=== PATIENT | female | born 1980 | race Caucasian/White ===

== ENCOUNTER 2016-07-02 14:27 | Emergency (ER) | payer MEDICAID ==
[2016-07-02 14:39] VITALS: O2SAT 99
[2016-07-02] MEDS ORDERED: ONDANSETRON 4 MG/2 ML VIAL IVP ONE (14:43)
[2016-07-02 14:50] LABS: % IMMATURE GRANULYOCYTES 0.6 % (0.0-1.1); ABSOLUTE IMMATURE GRANULOCYTES 0.05 10^3/uL (0.00-0.10); ADD DIFF? NO; ADD MORPH? NO; ADD SCAN? NO; ATYPICAL LYMPHOCYTE FLAG 0 (0-99); FRAGMENT RBC FLAG 0 (0-99); HEMATOCRIT 41.6 % (38.0-47.0); HEMOGLOBIN 14.8 g/dL (12.6-16.3); LEFT SHIFT FLG 0 (0-99); LIPEMIA HEMOLYSIS FLAG 90 (0-99); MEAN CELL HEMOGLOBIN 34.2 pg (27.9-34.1); MEAN CELL HEMOGLOBIN CONCENTR. 35.6 g/dL (32.4-36.7); MEAN CELL VOLUME 96.1 fL (81.5-99.8); MEAN PLATELET VOLUME 9.6 fL (8.7-11.7); PLATELET CLUMPS FLAG 40 (0-99); PLATELET COUNT 204 10^3/uL (150-400); RED BLOOD CELL COUNT 4.33 10^6/uL (4.18-5.33); RED CELL DISTRIBUTION WIDTH 12.4 % (11.5-15.2)
--- NOTE | 2016-07-02 14:50 | EDPHY ---
H & P Stated Complaint: n/v/d since last night Time Seen by Provider: 07/02/16 14:47 HPI/ROS: CHIEF COMPLAINT: Nausea, vomiting, diarrhea, fever, flu-like illness HISTORY OF PRESENT ILLNESS: The patient presents to the ED with nausea, vomiting, diarrhea, fever and a flu-like illness for the past 24 hours. The patient has had multiple episodes of nonbloody emesis. She reports a few episodes of nonbloody diarrhea. The patient denies recent travel outside the [place]. The patient complains of a mild frontal headache. The patient denies cough. She denies dysuria, she does report subjective dehydration. The patient denies additional complaints. REVIEW OF SYSTEMS: A comprehensive 10 point review of systems is otherwise negative aside from elements mentioned in the history of present illness. Source: Patient Exam Limitations: No limitations - Personal History LMP (Females 10-55): 8-14 Days Ago Current Tetanus/Diphtheria Vaccine: Yes Current Tetanus Diphtheria and Acellular Pertussis (TDAP): Yes Tetanus Vaccine Date: 2006 - Medical/Surgical History Hx Asthma: No Hx Chronic Respiratory Disease: No Hx Diabetes: No Hx Cardiac Disease: No Hx Renal Disease: No Hx Cirrhosis: No Hx Alcoholism: No Hx HIV/AIDS: No Hx Splenectomy or Spleen Trauma: No Other PMH: skin sx for skin ca; - Social History Smoking Status: Former smoker - Physical Exam Exam: General Appearance: Alert, no distress Eyes: Pupils equal and round no pallor or injection ENT, Mouth: Mucous membranes moist Respiratory: There are no retractions, lungs are clear to auscultation Cardiovascular: Tachycardic Gastrointestinal: Abdomen is soft and nontender, no masses, bowel sounds normal Neurological: A&O, normal motor function, normal sensory exam, normal cranial nerves Skin: Warm and dry, no rashes Musculoskeletal: Neck is supple nontender Extremities: symmetrical, full range of motion Constitutional: Initial Vital Signs Temperature (C) 37.1 C 07/02/16 14:37 Heart Rate 102 H 07/02/16 14:37 Respiratory Rate 16 07/02/16 14:37 Blood Pressure 117/74 07/02/16 14:37 O2 Sat (%) 99 07/02/16 14:37 O2 Delivery Mode Room Air Allergies/Adverse Reactions: Penicillins Allergy (Verified 12/15/14 18:00) Sulfa (Sulfonamide Antibiotics) Allergy (Verified 12/15/14 18:00) Home Medications: Medication Instructions Recorded Metronidazole 500 mg PO BID #14 tab 12/15/14 Hydrocodone/APAP 5/325 [[place] 1 - 2 each PO Q6 PRN #20 tab 07/02/16 5/325] Ondansetron Odt [Zofran Odt] 4 mg PO Q4PRN PRN #20 tab 07/02/16 Medical Decision Making ED Course/Re-evaluation: The patient had an IV established. She received 2 L normal saline. She received IV Zofran and 4 mg of morphine. She presents to the ED with complaints of nausea, vomiting and diarrhea consistent with a viral gastroenteritis. The patient's laboratory studies are unremarkable. The patient does have mild pyuria but no symptoms of dysuria. A urine culture will be obtained in antibiotics withheld pending the results of the urine culture. The patient will contact the ED in 2-3 days to check the results of that test. The patient did undergo 3 serial examinations in the ED by myself over a 2 hour period. At 5:00 p.m. she is feeling much better and tolerating p.o. fluids. I feel the most likely explanation of her symptoms is a viral gastroenteritis. She has no evidence of an acute abdomen. At this point time I do feel the patient can be discharged home with customary return precautions. She does understand that we have not pursued abdominal imaging based upon her current exam. Should her symptoms worsen it is imperative she return to the ED so that reassessment can be made for the development of a more significant surgical condition. Differential Diagnosis: Differential diagnosis considered includes gastroenteritis, pancreatitis, cholecystitis, viral enteritis, pyelonephritis - Data Points Laboratory Results: Laboratory Results 07/02/16 14:25 07/02/16 14:25 07/02/16 07/02/16 14:30 14:25 WBC 8.27 10^3/uL (3.80-9.50) RBC 4.33 10^6/uL (4.18-5.33) Hgb 14.8 g/dL (12.6-16.3) Hct 41.6 % (38.0-47.0) MCV 96.1 fL (81.5-99.8) MCH 34.2 H pg (27.9-34.1) MCHC 35.6 g/dL (32.4-36.7) RDW 12.4 % (11.5-15.2) Plt Count 204 10^3/uL (150-400) MPV 9.6 fL (8.7-11.7) Neut % (Auto) 88.5 H % (39.3-74.2) Lymph % (Auto) 6.0 L % (15.0-45.0) Gates % (Auto) 4.5 % (4.5-13.0) Eos % (Auto) 0.2 L % (0.6-7.6) Baso % (Auto) 0.2 L % (0.3-1.7) Nucleat RBC Rel Count 0.0 % (0.0-0.2) Absolute Neuts (auto) 7.31 H 10^3/uL (1.70-6.50) Absolute Lymphs (auto) 0.50 L 10^3/uL (1.00-3.00) Absolute Monos (auto) 0.37 10^3/uL (0.30-0.80) Absolute Eos (auto) 0.02 L 10^3/uL (0.03-0.40) Absolute Basos (auto) 0.02 10^3/uL (0.02-0.10) Absolute Nucleated RBC 0.00 10^3/uL (0-0.01) Immature Gran % 0.6 % (0.0-1.1) Immature Gran # 0.05 10^3/uL (0.00-0.10) Sodium 135 mEq/L (134-144) Potassium 4.0 mEq/L (3.5-5.2) Chloride 104 mEq/L (97-110) Carbon Dioxide 19 L mEq/l (22-31) Anion Gap 12 mEq/L (8-16) BUN 13 mg/dL (7-23) Creatinine 0.6 mg/dL (0.6-1.0) Estimated GFR > 60 Glucose 84 mg/dL (70-100) Calcium 9.0 mg/dL (8.5-10.4) Total Bilirubin 1.2 mg/dL (0.1-1.4) Conjugated Bilirubin 0.2 mg/dL (0.0-0.5) Unconjugated Bilirubin 1.0 mg/dL (0.0-1.1) AST 28 IU/L (14-46) ALT 37 IU/L (9-52) Alkaline Phosphatase 107 IU/L (38-126) Total Protein 7.6 g/dL (6.3-8.2) Albumin 4.5 g/dL (3.5-5.0) Lipase 131.0 IU/L (23-300) Beta HCG, Qual NEGATIVE Urine Color YELLOW Urine Appearance HAZY Urine pH 5.0 (5.0-7.5) Ur Specific [place] 1.021 (1.002-1.030) Urine Protein NEGATIVE (NEGATIVE) Urine Ketones 1+ H (NEGATIVE) Urine Blood NEGATIVE (NEGATIVE) Urine Nitrate NEGATIVE (NEGATIVE) Urine Bilirubin NEGATIVE (NEGATIVE) Urine Urobilinogen NEGATIVE EU (0.2-1.0) Ur Leukocyte Esterase TRACE H (NEGATIVE) Urine RBC 5-10 H /hpf (0-3) Urine WBC 3-5 H /hpf (0-3) Ur Epithelial Cells 1+ /lpf (NONE-1+) Urine Bacteria TRACE H /hpf (NONE SEEN) Urine Mucus 1+ /lpf (NONE-1+) Ur Culture Indicated? INDICATED H (NI) Urine Glucose NEGATIVE (NEGATIVE) Medications Given: Discontinued Medications Sodium Chloride (Ns) 1,000 mls @ 0 mls/hr IV ONCE ONE PRN Reason: Wide Open Stop: 07/02/16 15:13 Last Admin: 07/02/16 15:13 Dose: 1,000 mls Ketorolac Tromethamine (Toradol) 30 mg IVP EDNOW ONE Stop: 07/02/16 15:37 Last Admin: 07/02/16 15:42 Dose: 30 mg Morphine Sulfate (Morphine) 4 mg IVP EDNOW ONE Stop: 07/02/16 15:04 Last Admin: 07/02/16 15:06 Dose: 4 mg Ondansetron HCl (Zofran) 4 mg IVP EDNOW ONE Stop: 07/02/16 14:44 Last Admin: 07/02/16 14:48 Dose: 4 mg Departure - Departure Disposition: Home, Routine, Self-Care Clinical Impression: Nausea and vomiting, Acute abdominal pain Condition: Good Instructions: Acute Abdominal Pain (ED) Additional Instructions: 1. Sometimes we are unable to diagnose an obvious cause of abdominal pain in the Emergency Department. Based upon our evaluation today, I believe the most likely explanation is a viral intestinal infection.. Because more serious conditions can be difficult to diagnose early in the course of their presentation, we ask that you return to the Emergency Department in 8-12 hours for a recheck if you are still having pain. This is necessary to exclude the development of a more serious condition such as appendicitis or other intra- abdominal emergency. In the event your pain markedly increases before that time or you develop intractable vomiting or fever return to the Emergency Department immediately. 2. You did have evidence of a few white blood cells noted in your urine testing today. We will wait to obtain a urine culture to see if antibiotics are warranted. Please contact the ED in 2 days at [phone] to check the results of your urine culture. 3. Take Ibuprofen or Motrin 600 mg by mouth three times a day. 4. Zofran as needed for nausea Prescriptions: Hydrocodone/APAP 5/325 [[place] 5/325] 1 - 2 each PO Q6 PRN #20 tab PRN Reason: for pain Ondansetron Odt [Zofran Odt] 4 mg PO Q4PRN PRN #20 tab PRN Reason: For Nausea
[2016-07-02 14:56] LABS: COLOR YELLOW; LEUKOCYTE ESTERASE,URINE TRACE (NEGATIVE); NITRITE,URINE NEGATIVE (NEGATIVE)
[2016-07-02 14:59] LABS: BACTERIA TRACE /hpf (NONE SEEN); MUCUS 1+ /lpf (NONE-1+)
[2016-07-02] MEDS ORDERED: NS 1,000 ML IV ONE (15:12)
[2016-07-02 15:13] LABS: ALANINE AMINOTRANSFERASE 37 IU/L (9-52); ALBUMIN 4.5 g/dL (3.5-5.0); ANION GAP 12 mEq/L (8-16); ASPARTATE AMINOTRANSFERASE 28 IU/L (14-46); BILIRUBIN,TOTAL 1.2 mg/dL (0.1-1.4); BILIRUBIN-CONJUGATED 0.2 mg/dL (0.0-0.5); CARBON DIOXIDE 19 mEq/l (22-31); CHLORIDE 104 mEq/L (97-110); CREATININE 0.6 mg/dL (0.6-1.0); GLOMERULAR FILTRATION RATE > 60; GLUCOSE 84 mg/dL (70-100); SODIUM 135 mEq/L (134-144); TOTAL PROTEIN 7.6 g/dL (6.3-8.2)
[2016-07-02] MEDS ORDERED: KETOROLAC 30 MG/1 ML SDV IVP ONE (15:36)
[2016-07-02] MEDS ORDERED: ONDANSETRON DISINTEGRATING 4 MG TAB PO ONE (17:24)
[2016-07-02 17:33] VITALS: BP 96/60; PULSE 88; RESP 18; TEMP 98.6
[2016-07-02 22:47] LABS: ALKALINE PHOSPHATASE 50 IU/L (38-126)
== END 2016-07-02 17:32 | disposition home or self-care (01) ==
LOC: EDBD → EDUNIT#
DX: R11.2 Nausea with vomiting, unspecified (principal); R10.0 Acute abdomen; Z85.828 Personal history of other malignant neoplasm of skin; Z87.891 Personal history of nicotine dependence
CPT/HCPCS: 96374; J1885; J2405

== ENCOUNTER 2017-01-15 19:36 | Emergency (ER) | payer MEDICAID ==
[2017-01-15 19:48] VITALS: TEMP 98.2
[2017-01-15 20:15] LABS: COLOR AMBER; LEUKOCYTE ESTERASE,URINE TRACE (NEGATIVE); NITRITE,URINE NEGATIVE (NEGATIVE)
[2017-01-15] MEDS ORDERED: NS 1,000 ML IV ONE (20:17)
[2017-01-15 20:19] LABS: BACTERIA NONE SEEN /hpf (NONE SEEN); MUCUS TRACE /lpf (NONE-1+); RBC,URINE 50-182 /hpf (0-3)
[2017-01-15 20:37] LABS: % IMMATURE GRANULYOCYTES 0.3 % (0.0-1.1); ABSOLUTE IMMATURE GRANULOCYTES 0.03 10^3/uL (0.00-0.10); ADD DIFF? NO; ADD MORPH? NO; ADD SCAN? NO; ATYPICAL LYMPHOCYTE FLAG 0 (0-99); FRAGMENT RBC FLAG 0 (0-99); HEMATOCRIT 37.4 % (38.0-47.0); HEMOGLOBIN 12.9 g/dL (12.6-16.3); LEFT SHIFT FLG 0 (0-99); LIPEMIA HEMOLYSIS FLAG 90 (0-99); MEAN CELL HEMOGLOBIN 33.2 pg (27.9-34.1); MEAN CELL HEMOGLOBIN CONCENTR. 34.5 g/dL (32.4-36.7); MEAN CELL VOLUME 96.1 fL (81.5-99.8); MEAN PLATELET VOLUME 9.8 fL (8.7-11.7); PLATELET CLUMPS FLAG 0 (0-99); PLATELET COUNT 193 10^3/uL (150-400); RED BLOOD CELL COUNT 3.89 10^6/uL (4.18-5.33); RED CELL DISTRIBUTION WIDTH 12.8 % (11.5-15.2)
[2017-01-15 20:50] LABS: ALANINE AMINOTRANSFERASE 30 IU/L (9-52); ALBUMIN 4.2 g/dL (3.5-5.0); ALKALINE PHOSPHATASE 38 IU/L (38-126); ANION GAP 12 mEq/L (8-16); ASPARTATE AMINOTRANSFERASE 25 IU/L (14-46); BILIRUBIN,TOTAL 0.6 mg/dL (0.1-1.4); BILIRUBIN-CONJUGATED 0.3 mg/dL (0.0-0.5); BILIRUBIN-UNCONJUGATED 0.3 mg/dL (0.0-1.1); CALCIUM 9.6 mg/dL (8.5-10.4); CARBON DIOXIDE 21 mEq/l (22-31); CHLORIDE 105 mEq/L (97-110); CREATININE 0.8 mg/dL (0.6-1.0); GLOMERULAR FILTRATION RATE > 60; GLUCOSE 108 mg/dL (70-100); POTASSIUM 3.7 mEq/L (3.5-5.2); SODIUM 138 mEq/L (134-144); TOTAL PROTEIN 6.7 g/dL (6.3-8.2)
[2017-01-15] MEDS ORDERED: DICYCLOMINE 10 MG CAP PO ONE ×2 (21:25→21:40)
--- NOTE | 2017-01-15 21:36 | EDPHY ---
H & P Stated Complaint: gen abd pain x 3 hours, nausea, diarrhea HPI/ROS: Chief complaint: Abdominal pain History of present illness: This is a 37-year-old female who presents to the emergency department for evaluation of abdominal pain. Patient reports the onset of symptoms over the last 3 hours. She has had associated nausea, vomiting and diarrhea. Vomiting and diarrhea described as nonbloody. Patient reports a long history of chronic abdominal pain, currently it is thought that she has abdominal migraines. She did take her sumatriptan and diclofenac that she treats her abdominal pain with at the onset of symptoms and they have been slowly improving. She denies other associated signs or symptoms including no fevers, no urinary symptoms. This is similar in presentation to symptoms she has had over the last few years. Review of systems: A 10 point review of systems was obtained and other than described above was negative - Personal History LMP (Females 10-55): 1-7 Days Ago Current Tetanus/Diphtheria Vaccine: Unsure Current Tetanus Diphtheria and Acellular Pertussis (TDAP): Unsure Tetanus Vaccine Date: 2006 - Medical/Surgical History Hx Asthma: No Hx Chronic Respiratory Disease: No Hx Diabetes: No Hx Cardiac Disease: No Hx Renal Disease: No Hx Cirrhosis: No Hx Alcoholism: No Hx HIV/AIDS: No Hx Splenectomy or Spleen Trauma: No Other PMH: denies. (does not have migraines) - Social History Smoking Status: Former smoker - Physical Exam Exam: General Appearance: Alert, nontoxic. Eyes: Pupils equal and round no pallor or injection. ENT, Mouth: Mucous membranes moist. Respiratory: There are no retractions, lungs are clear to auscultation. Cardiovascular: Regular rate and rhythm. Gastrointestinal: Bowel sounds normal. Abdomen soft, nondistended, nontender to palpation. Neurological: Alert and oriented x4. Strength and sensation intact and symmetrical. Skin: Warm and dry, no rashes. Musculoskeletal: Neck is supple non tender. Extremities are symmetrical, full range of motion. Psychiatric: Patient is oriented X 3, there is no agitation. Constitutional: Initial Vital Signs Temperature (C) 36.8 C 01/15/17 19:45 Heart Rate 82 01/15/17 19:45 Respiratory Rate 16 01/15/17 19:45 Blood Pressure 120/83 H 01/15/17 19:45 O2 Sat (%) 99 01/15/17 19:45 O2 Delivery Mode Room Air Allergies/Adverse Reactions: Penicillins Allergy (Verified 12/15/14 18:00) Sulfa (Sulfonamide Antibiotics) Allergy (Verified 12/15/14 18:00) Home Medications: Medication Instructions Recorded Diclofenac Potassium 01/15/17 Sumatriptan Succinate 01/15/17 Medical Decision Making ED Course/Re-evaluation: Patient seen under the supervision of my secondary supervising physician Dr. Velasquez Hilliard. Patient presents to the emergency department with abdominal pain. She has a long history of chronic abdominal pain. This is similar in nature. She is nontoxic. Afebrile and vital signs are stable. Serial abdominal exams are performed in the emergency room and remain benign. Baseline blood studies largely unremarkable. Urinalysis obtained, concerning findings are noted but she does states she has started her menstrual cycle and she has no urinary symptoms, we will not treat at this time but will await a urine culture. I have discussed pursuing imaging studies including an ultrasound which her outpatient doctor wants to get or a CT scan, she declines at this time given this is a typical presentation and she is feeling much better. She will follow up with her primary care doctor for further evaluation and care. Home care is discussed. Strict return precautions are given. The patient voiced understanding and agreement with plan. Differential Diagnosis: Included but not limited to abdominal migraine, gastritis, gastroenteritis, biliary tract disease, pancreatitis, colitis, urinary tract disease, an associated complications - Data Points Laboratory Results: Laboratory Results 01/15/17 20:30 01/15/17 20:30 Medications Given: Discontinued Medications Dicyclomine HCl (Bentyl) 20 mg PO EDNOW ONE Stop: 01/15/17 21:26 Last Admin: 01/15/17 21:57 Dose: 20 mg Dicyclomine HCl (Bentyl) 20 mg PO EDNOW ONE Stop: 01/15/17 21:41 Last Admin: 01/15/17 22:00 Dose: 20 mg Sodium Chloride (Ns) 1,000 mls @ 0 mls/hr IV EDNOW ONE; Wide Open PRN Reason: Protocol Stop: 01/15/17 20:18 Last Admin: 01/15/17 20:29 Dose: 1,000 mls Departure - Departure Disposition: Home, Routine, Self-Care Clinical Impression: Abdominal pain Qualifiers: Abdominal location: generalized Qualified Code(s): R10.84 - Generalized abdominal pain Condition: Good Instructions: Dicyclomine (By mouth), Acute Abdominal Pain (ED) Additional Instructions: Follow-up with a primary care doctor for continued evaluation and care If symptoms worsen or new symptoms develop return to the emergency room for recheck Referrals: NONE *PRIMARY CARE P,. [Primary Care Provider] - As per Instructions Quincy Larsen MD [Medical Doctor] - As per Instructions
[2017-01-15 22:16] VITALS: BP 107/68; PULSE 77; RESP 18; O2SAT 95
== END 2017-01-15 22:16 | disposition home or self-care (01) ==
DX: R10.84 Generalized abdominal pain (principal); E86.9 Volume depletion, unspecified; Z87.891 Personal history of nicotine dependence

== ENCOUNTER 2017-01-17 02:24 | Emergency (ER) | payer MEDICAID ==
[2017-01-17 02:36] VITALS: TEMP 97.9
[2017-01-17] MEDS ORDERED: NS 1,000 ML IV ONE (02:59)
[2017-01-17] MEDS ORDERED: KETOROLAC 30 MG/1 ML SDV IVP ONE (02:59)
[2017-01-17 03:07] LABS: % IMMATURE GRANULYOCYTES 0.3 % (0.0-1.1); ABSOLUTE IMMATURE GRANULOCYTES 0.02 10^3/uL (0.00-0.10); ADD DIFF? NO; ADD MORPH? NO; ADD SCAN? NO; ATYPICAL LYMPHOCYTE FLAG 10 (0-99); FRAGMENT RBC FLAG 0 (0-99); HEMATOCRIT 39.1 % (38.0-47.0); HEMOGLOBIN 13.4 g/dL (12.6-16.3); LEFT SHIFT FLG 0 (0-99); LIPEMIA HEMOLYSIS FLAG 90 (0-99); MEAN CELL HEMOGLOBIN 33.3 pg (27.9-34.1); MEAN CELL HEMOGLOBIN CONCENTR. 34.3 g/dL (32.4-36.7); MEAN CELL VOLUME 97.3 fL (81.5-99.8); MEAN PLATELET VOLUME 10.5 fL (8.7-11.7); PLATELET CLUMPS FLAG 10 (0-99); PLATELET COUNT 209 10^3/uL (150-400); RED BLOOD CELL COUNT 4.02 10^6/uL (4.18-5.33); RED CELL DISTRIBUTION WIDTH 12.9 % (11.5-15.2)
[2017-01-17 03:13] LABS: ANION GAP 14 mEq/L (8-16); CALCIUM 9.3 mg/dL (8.5-10.4); CARBON DIOXIDE 21 mEq/l (22-31); CHLORIDE 108 mEq/L (97-110); CREATININE 0.7 mg/dL (0.6-1.0); GLOMERULAR FILTRATION RATE > 60; GLUCOSE 83 mg/dL (70-100); POTASSIUM 3.9 mEq/L (3.5-5.2); SODIUM 143 mEq/L (134-144)
[2017-01-17 03:55] LABS: COLOR YELLOW; LEUKOCYTE ESTERASE,URINE 1+ (NEGATIVE); NITRITE,URINE NEGATIVE (NEGATIVE)
[2017-01-17 04:00] LABS: MUCUS TRACE /lpf (NONE-1+); RBC,URINE 50-182 /hpf (0-3); WBC,URINE 25-50 /hpf (0-3)
--- NOTE | 2017-01-17 04:42 | EDPHY ---
H & P Stated Complaint: severe menstrual cramping/diarrhea Time Seen by Provider: 01/17/17 02:26 HPI/ROS: HPI The patient presents brought in by ambulance for severe menstrual cramps which have been present for last few days though became worse tonight. The cramping is diffuse, in her lower abdomen, constant, severe. She has had these symptoms before though feels like there worse lately. She is currently having her menses and reports changing her tampon approximately every 4 hours. They are associated with diarrhea. She has been followed by Dr. Schwartz of OBGYN and ultrasound has been ordered for her. She also was prescribed oral contraceptive progesterone many pills, however was skeptical about taking these. EMS gave her 100 mcg of fentanyl with improvement in her symptoms. REVIEW OF SYSTEMS Constitutional: No fever, no chills. Eyes: No discharge. ENT: No sore throat. Cardiovascular: No chest pain, no palpitations. Respiratory: No cough, no shortness of breath. Gastrointestinal: See HPI, no vomiting. Genitourinary: No hematuria. Musculoskeletal: No back pain. Skin: No rashes. Neurological: No headache. PMHx: Dysmenorrhea Soc Hx: Housed PHYSICAL General Appearance: Alert, no distress Eyes: Pupils equal and round no pallor or injection ENT, Mouth: Mucous membranes moist Respiratory: There are no retractions, lungs are clear to auscultation Cardiovascular: Regular rate and rhythm Gastrointestinal: Abdomen is soft with mild tenderness in the lower abdomen at the midline without any rebound or guarding Neurological: A&O, moves all extremities Skin: Warm and dry, no rashes Musculoskeletal: Neck is supple non tender Extremities: symmetrical, full range of motion Psychiatric: Patient is oriented X 3, there is no agitation Source: Patient Exam Limitations: No limitations - Personal History Tetanus Vaccine Date: 2006 - Medical/Surgical History Hx Asthma: No Hx Chronic Respiratory Disease: No Hx Diabetes: No Hx Cardiac Disease: No Hx Renal Disease: No Hx Cirrhosis: No Hx Alcoholism: No Hx HIV/AIDS: No Hx Splenectomy or Spleen Trauma: No Other PMH: denies. (does not have migraines) - Social History Smoking Status: Former smoker Constitutional: Initial Vital Signs Temperature (C) 36.6 C 01/17/17 02:34 Heart Rate 82 01/17/17 02:34 Respiratory Rate 22 H 01/17/17 02:34 Blood Pressure 135/85 H 01/17/17 02:34 O2 Sat (%) 97 01/17/17 02:34 O2 Delivery Mode Room Air Allergies/Adverse Reactions: Penicillins Allergy (Verified 01/17/17 02:35) Sulfa (Sulfonamide Antibiotics) Allergy (Verified 01/17/17 02:35) Home Medications: Medication Instructions Recorded Diclofenac Potassium 01/15/17 Sumatriptan Succinate 01/15/17 Medical Decision Making Differential Diagnosis: This is a 37-year-old female who presents with lower abdominal cramping in the setting of her menses. Differential diagnosis includes dysmenorrhea, ovarian cysts, less likely ovarian torsion, less likely PID. In the emergency room, patient was given pain medication with complete resolution of her symptoms. I encouraged her to start taking the progesterone many pills she has been prescribed. I have asked that she follow up with her OBGYN for ultrasound. - Data Points Laboratory Results: Laboratory Results 01/17/17 02:15 01/17/17 02:15 Medications Given: Discontinued Medications Sodium Chloride (Ns) 1,000 mls @ 0 mls/hr IV EDNOW ONE; Wide Open PRN Reason: Protocol Stop: 01/17/17 03:00 Last Admin: 01/17/17 03:11 Dose: 1,000 mls Ketorolac Tromethamine (Toradol) 15 mg IVP EDNOW ONE Stop: 01/17/17 03:00 Last Admin: 01/17/17 03:14 Dose: 15 mg Departure - Departure Disposition: Home, Routine, Self-Care Clinical Impression: Dysmenorrhea Condition: Good Instructions: Dysmenorrhea (ED) Additional Instructions: I recommend that you follow all your OBGYN is a advice to start the mini pill. Please also obtain your ultrasound in the next few days. Return to the emergency room if your worse in any way. I would like for you to follow up with your OBGYN in the next 2 days. Referrals: Ronda Schwartz CNM [Certified Nurse Meter Mechanic] - As per Instructions
[2017-01-17 04:56] VITALS: BP 96/53; PULSE 91; RESP 16; O2SAT 98
== END 2017-01-17 05:04 | disposition home or self-care (01) ==
LOC: EDUNIT#
DX: N94.6 Dysmenorrhea, unspecified (principal); E86.9 Volume depletion, unspecified; Z87.891 Personal history of nicotine dependence
CPT/HCPCS: 96374; J1885

== ENCOUNTER → 2017-01-31 | Outpatient (CLI) | payer MEDICAID | LOC: FIMAGING 14:38 | PROVIDERS: ATTEND Midwife | DX: N94.6 Dysmenorrhea, unspecified (principal); N92.0 Excessive and frequent menstruation with regular cycle; D25.2 Subserosal leiomyoma of uterus ==

== ENCOUNTER 2017-07-10 00:05 | Emergency (ER) | payer MEDICAID ==
[2017-07-10] MEDS ORDERED: LIDOCAINE 1% 75 MG in NS 100 ML IV ONE (01:12)
--- NOTE | 2017-07-10 01:39 | EDPHY ---
H & P Stated Complaint: abdominal pain Time Seen by Provider: 07/10/17 00:18 HPI/ROS: HPI The patient presents with abdominal pain which began several hours ago, which started suddenly and is diffuse and cramping in nature. It has been severe. She is brought in by ambulance. She was given IV fluids and Zofran with some improvement in her symptoms. Today was the 1st day of her menses and she has had similar pain in the setting. She was recently on the mini pill, however stop taking it about a month ago because it was causing some affects on her mood. Prior to arrival in the emergency department, she took Imitrex, Toradol, THC without much improvement in her symptoms. I have seen her in the emergency department for this once before several months ago. She is followed by Sanjana Carlson. She had an ultrasound performed in January of 2017 which demonstrated endometrial stripe of 9 mm, 2 cm left-sided subserosal fibroid. REVIEW OF SYSTEMS Constitutional: No fever, no chills. Eyes: No discharge. ENT: No sore throat. Cardiovascular: No chest pain, no palpitations. Respiratory: No cough, no shortness of breath. Gastrointestinal: See HPI Genitourinary: No hematuria. Musculoskeletal: No back pain. Skin: No rashes. Neurological: No headache. PMHx: Dysmenorrhea PHYSICAL General Appearance: Alert, uncomfortable appearing Eyes: Pupils equal and round no pallor or injection ENT, Mouth: Mucous membranes moist Respiratory: There are no retractions, lungs are clear to auscultation Cardiovascular: Regular rate and rhythm Gastrointestinal: Abdomen is soft and non-tender, no masses, bowel sounds normal Neurological: A&O, moves all extremities Skin: Warm and dry, no rashes Musculoskeletal: Neck is supple non tender Extremities: symmetrical, full range of motion Psychiatric: Patient is oriented X 3, there is no agitation Source: Patient Exam Limitations: No limitations - Personal History LMP (Females 10-55): Now Tetanus Vaccine Date: 2006 - Medical/Surgical History Hx Asthma: No Hx Chronic Respiratory Disease: No Hx Diabetes: No Hx Cardiac Disease: No Hx Renal Disease: No Hx Cirrhosis: No Hx Alcoholism: No Hx HIV/AIDS: No Hx Splenectomy or Spleen Trauma: No Other PMH: migranes - Social History Smoking Status: Former smoker Constitutional: Initial Vital Signs Temperature (C) 36.6 C 07/10/17 00:07 Heart Rate 68 07/10/17 00:07 Respiratory Rate 18 07/10/17 00:07 Blood Pressure 100/63 07/10/17 00:07 O2 Sat (%) 99 07/10/17 00:07 O2 Delivery Mode Room Air Allergies/Adverse Reactions: Penicillins Allergy (Verified 01/17/17 02:35) Sulfa (Sulfonamide Antibiotics) Allergy (Verified 01/17/17 02:35) Home Medications: Medication Instructions Recorded Diclofenac Potassium 01/15/17 Sumatriptan Succinate 01/15/17 Medical Decision Making Differential Diagnosis: 37-year-old female with severe dysmenorrhea, previously managed on progestin only pill, presents brought in by ambulance on day 1 of her menses with severe cramping abdominal pain and nausea with vomiting. Differential diagnosis includes dysmenorrhea, abdominal migraine, cyclic vomiting. Given patient's presentation is identical to previous, I will not initiate broad workup. I will focus on symptomatic relief. I will give her IV fluids, medication for pain and vomiting as needed and we will monitor her here. In the ED, the patient improved after receiving fluids, lidocaine. She did take a large amount THC prior to arrival in the emergency department and became quite intoxicated with this. She was observed for several hours and was eventually able to sleep. She felt well enough to go home and was discharged home. I have advised her to follow up with her treating OBGYN to discuss options for hormone treatment as the seem to be helping her with her dysmenorrhea previously. - Data Points Medications Given: Discontinued Medications Lidocaine HCl 75 mg/ Sodium (Chloride) 107.5 mls @ 600 mls/hr IV EDNOW ONE Stop: 07/10/17 01:22 Last Admin: 07/10/17 01:31 Dose: 107.5 mls Departure - Departure Disposition: Home, Routine, Self-Care Clinical Impression: Dysmenorrhea Condition: Good Instructions: Dysmenorrhea (ED) Additional Instructions: Please call your primary OBGYN to arrange for a follow-up appointment. Return to the emergency department if your worse in any way. Referrals: Ronda Schwartz CNM [Certified Nurse Grain Sacker] - As per Instructions
[2017-07-10 04:25] VITALS: TEMP 98.2
[2017-07-10 06:09] VITALS: BP 98/58; PULSE 86; RESP 16; O2SAT 97
== END 2017-07-10 06:08 | disposition home or self-care (01) ==
LOC: EDUNIT#
DX: N94.6 Dysmenorrhea, unspecified (principal); Z87.891 Personal history of nicotine dependence
CPT/HCPCS: 96365

== ENCOUNTER → 2018-02-19 | Outpatient (CLI) | payer MEDICAID | LOC: FIMAGING 09:34 | PROVIDERS: ATTEND Nurse Practitioner Family | DX: D25.2 Subserosal leiomyoma of uterus (principal); N85.8 Other specified noninflammatory disorders of uterus ==

== ENCOUNTER 2018-04-24 08:42 | Emergency (ER) | payer MEDICAID ==
--- NOTE | 2018-04-24 09:16 | EDPHY ---
H & P Stated Complaint: menstral cramps Time Seen by Provider: 04/24/18 09:01 HPI/ROS: CHIEF COMPLAINT: "I have got really bad menstrual cramps" HISTORY OF PRESENT ILLNESS: 38-year-old female history of endometriosis, uterine fibroids, started her menstrual cycles today, complaining of suprapubic cramping, arrives by ambulance. Patient has intramuscular Toradol which she self administer at home shortly prior to calling the ambulance. At the time I examine the patient it 9:07 a.m., she is asymptomatic. She has an appointment today at 1:00 p.m. With her OBGYN and is planning on more than likely surgery for endometriosis and uterine fibroids in May 2018. She currently denies abdominal pain. Denies: Fever, chills, back flank pain, flu-like symptoms, urinary abnormality PRIMARY CARE PROVIDER: REVIEW OF SYSTEMS: 10 systems reviewed and negative with the exception of the elements mentioned in the history of present illness PAST MEDICAL & SURGICAL HISTORY: uterine fibroids. Endometriosis. SOCIAL HISTORY: Nonsmoker PHYSICAL EXAM (Prior to examination, patient consented to physical exam, hands were washed and my usual and customary physical exam procedures followed) 1) GENERAL: Well-developed, well-nourished, alert and oriented. Appears to be in no acute distress. Appears well. Smiling 2) HEAD: Normocephalic, atraumatic 3) HEENT: Pupils equal, round, reactive to light bilaterally. Sclera anicteric. Nasopharynx, oropharynx, clear, no lesions. Moist Mucous membranes. 4) NECK: Full range of motion, no meningeal signs. 5) LUNGS: Clear auscultation bilaterally, no wheezes, no rhonchi, no retractions. 6) HEART: Regular rate and rhythm, no murmur, no heave, no gallop. 7) ABDOMEN: No guarding, no rebound, no focal tenderness, negative McBurney's, negative Perez's, negative Rovsing's, negative peritoneal sign, I am unable to elicit any abdominal pain whatsoever 8) MUSCULOSKELETAL: Moving all extremities, no focal areas of tenderness, no obvious trauma. No peripheral edema or discoloration. 9) BACK: No CVA tenderness, no midline vertebral tenderness, no fluctuance, no step-off, no obvious trauma, no visual or palpable abnormality. 10) SKIN: No rash, no petechiae. 11) Psychiatric: Patient is oriented X 3, there is no agitation. DIFFERENTIAL DIAGNOSIS: My differential diagnosis includes, but is not limited to, acute appendicitis, acute cholecystitis, bowel obstruction, acute pancreatitis, ovarian torsion, ectopic , gastritis and urinary tract infection. The patient understands that this diagnosis is provisional and can never be 100% accurate. This is a partial list of diagnoses considered. These considerations are based on history, physical exam, past history and reassessment. - Personal History LMP (Females 10-55): Now Current Tetanus/Diphtheria Vaccine: No Current Tetanus Diphtheria and Acellular Pertussis (TDAP): No Tetanus Vaccine Date: 2006 - Medical/Surgical History Hx Asthma: No Hx Chronic Respiratory Disease: No Hx Diabetes: No Hx Cardiac Disease: No Hx Renal Disease: No Hx Cirrhosis: No Hx Alcoholism: No Hx HIV/AIDS: No Hx Splenectomy or Spleen Trauma: No Other PMH: migranes, ? endometriosis, fibroids and ovarian cysts - Social History Smoking Status: Former smoker Constitutional: Initial Vital Signs Temperature (C) 36.2 C 04/24/18 08:44 Heart Rate 74 04/24/18 08:44 Respiratory Rate 18 04/24/18 08:44 Blood Pressure 112/67 04/24/18 08:44 O2 Sat (%) 100 04/24/18 08:44 O2 Delivery Mode Room Air Allergies/Adverse Reactions: Penicillins Allergy (Verified 01/17/17 02:35) Sulfa (Sulfonamide Antibiotics) Allergy (Verified 01/17/17 02:35) Home Medications: Medication Instructions Recorded Diclofenac Potassium 01/15/17 Sumatriptan Succinate 01/15/17 Medical Decision Making ED Course/Re-evaluation: 9:15 a.m.: Patient is currently asymptomatic. She has already received IV access and IV fluids. She has not been given EMS medication or medication the ER beyond IV fluids. Will check test, urinalysis and plan on more than likely discharged so she can keep her appointment today at 1:00 p.m. With OBGYN. This time I do not think that further diagnostic studies are ultrasound indicated. I reviewed the patient's old medical records. Care of patient under supervision of secondary supervising physician Dr Jodie Castaneda . - Data Points Laboratory Results: 04/24/18 04/24/18 11:15 09:00 Beta HCG, Qual NEGATIVE Urine Color YELLOW Urine Appearance MODERATELY TURBID Urine pH 5.0 (5.0-7.5) Ur Specific [place] 1.019 (1.002-1.030) Urine Protein NEGATIVE (NEGATIVE) Urine Ketones NEGATIVE (NEGATIVE) Urine Blood 3+ H (NEGATIVE) Urine Nitrate NEGATIVE (NEGATIVE) Urine Bilirubin NEGATIVE (NEGATIVE) Urine Urobilinogen NEGATIVE EU EU (0.2-1.0) Ur Leukocyte Esterase NEGATIVE (NEGATIVE) Urine RBC 50-182 /hpf H /hpf (0-3) Urine WBC 10-15 /hpf H /hpf (0-3) Ur Epithelial Cells TRACE /lpf /lpf (NONE-1+) Urine Mucus 2+ /lpf H /lpf (NONE-1+) Urine Glucose NEGATIVE (NEGATIVE) Medications Given: Discontinued Medications Sodium Chloride (Ns) 1,000 mls @ 0 mls/hr IV ONCE ONE PRN Reason: Wide Open Stop: 04/24/18 10:30 Last Admin: 04/24/18 10:32 Dose: 1,000 mls Departure - Departure Disposition: Home, Routine, Self-Care Clinical Impression: Menstrual pain Condition: Good Instructions: Dysmenorrhea (ED) Additional Instructions: Return to the ER if you develop new or worsening pain. Referrals: Keep, your appointment with your mechanical service technician today [Other] - As per Instructions
[2018-04-24] MEDS ORDERED: NS 1,000 ML IV ONE (10:29)
[2018-04-24 11:37] VITALS: BP 100/61
== END 2018-04-24 11:49 | disposition home or self-care (01) ==
LOC: EDUNIT#
DX: N94.6 Dysmenorrhea, unspecified (principal); E86.9 Volume depletion, unspecified; N80.9 Endometriosis, unspecified; D25.9 Leiomyoma of uterus, unspecified

== ENCOUNTER 2018-09-03 07:34 | Observation (INO) | payer MEDICAID ==
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
[2018-09-03] MEDS ORDERED: GABAPENTIN 300 MG CAP PO ONE (07:42)
[2018-09-03] MEDS ORDERED: ACETAMINOPHEN 500 MG TAB PO ONE (07:42)
[2018-09-03] MEDS ORDERED: PHENAZOPYRIDINE HCL 200 MG TAB PO ONE (07:42)
[2018-09-03] MEDS ORDERED: ceFAZolin 2 GM/DEXTROSE 100 ML IV ONE (07:42)
[2018-09-03] MEDS ORDERED: LR 1,000 ML IV ONE (07:44)
[2018-09-03] MEDS ORDERED: BUPIVACAINE/EPI 0.5% 30 ML SDV ONE (08:17)
[2018-09-03] MEDS ORDERED: PROPOFOL 200 MG/20 ML VIAL ONE (09:36)
[2018-09-03] MEDS ORDERED: DEXAMETHASONE 4 MG/ML VIAL ONE ×2 (09:36→14:08)
[2018-09-03] MEDS ORDERED: ROCURONIUM 100 MG/10 ML VIAL ONE (09:36)
[2018-09-03] MEDS ORDERED: LIDOCAINE 2% 100 MG/5 ML SYR ONE (09:36)
[2018-09-03] MEDS ORDERED: ONDANSETRON 4 MG/2 ML VIAL ONE ×3 (09:36→14:08)
[2018-09-03] MEDS ORDERED: fentaNYL 250 MCG/5 ML INJ ONE (09:36)
--- NOTE | 2018-09-03 09:45 | PDHPUP ---
History & Physical Update H&P update statement: This history and physical update is based on an assessment of the patient which was completed after admission or registration (within 24 hours), but prior to the surgery/procedure. H&P update: H&P reviewed & patient examined, no change in patient's condition since H&P completed
--- NOTE | 2018-09-03 10:06 | PDANEPAE ---
ANE History of Present Illness endometriosis and here for ablation with robotic assist ANE Past Medical History - Cardiovascular History Hx Hypertension: No Hx Arrhythmias: Yes Hx Chest Pain: No Hx Coronary Artery / Peripheral Vascular Disease: No Hx CHF / Valvular Disease: No Hx Palpitations: No Cardiovascular History Comment: heart murmur as baby - Pulmonary History Hx COPD: No Hx Asthma/Reactive Airway Disease: No Hx Recent Upper Respiratory Infection: No Hx Oxygen in Use at Home: No Hx Sleep Apnea: No Sleep Apnea Screening Result - Last Documented: Negative - Neurologic History Hx Cerebrovascular Accident: No Hx Seizures: No Hx Dementia: No Neurologic History Comment: migraines - Endocrine History Hx Diabetes: No - Renal History Hx Renal Disorders: No - Liver History Hx Hepatic Disorders: No - Neurological & Psychiatric Hx Hx Neurological and Psychiatric Disorders: No - Cancer History Hx Cancer: Yes Cancer History Comment: skin ca and pre- cancerous skin ca spots removed - Congenital Disorder History Hx Congenital Disorders: No - GI History Hx Gastrointestinal Disorders: No - Other Health History Other Health History: inner ear piercing patient will try to get it removed and have plastic post placed for surgery - Chronic Pain History Chronic Pain: No - Surgical History Prior Surgeries: removal of bone fragments in broken nose under twilight anesthesia- 2013 ANE Review of Systems Review of Systems: - Exercise capacity METS (RN): 4 METS ANE Patient History - Allergies Allergies/Adverse Reactions: nickel Allergy (Verified 08/13/18 10:51) Rash- very quickly upon contact Penicillins Allergy (Verified 08/13/18 10:51) Hives Sulfa (Sulfonamide Antibiotics) Allergy (Verified 08/13/18 10:51) Hives - Home Medications Home Medications: Ajovy 08/13/18 [Last Taken 09/02/18] Herbals/Supplements -Info Only 08/13/18 [Last Taken 1 Week Ago ~08/27/18] Hydroxyzine HCl PRN 08/13/18 [Last Taken 2 Weeks Ago ~08/20/18] Zipsor PRN 08/13/18 [Last Taken 2 Weeks Ago ~08/20/18] Cyclobenzaprine 09/03/18 [Last Taken 09/02/18] - NPO status NPO Since - Liquids (Date): 09/03/18 NPO Since - Liquids (Time): 06:00 NPO Since - Solids (Date): 09/02/18 NPO Since - Solids (Time): 22:00 - Smoking Hx Smoking Status: Former smoker - Family Anes Hx Family Hx Anesthesia Complications: none ANE Labs/Vital Signs - Vital Signs Blood Pressure: 95/62 Heart Rate: 78 Respiratory Rate: 18 O2 Sat (%): 99 Height: 168.91 cm Weight: 52.163 kg ANE Physical Exam - Airway Neck exam: FROM Mallampati Score: Class 1 Mouth exam: normal dental/mouth exam - Pulmonary Pulmonary: no respiratory distress, no rales or rhonchi - Cardiovascular Cardiovascular: regular rate and rhythym, no murmur, rub, or gallop - ASA Status ASA Status: II ANE Anesthesia Plan Anesthesia Plan: general endotracheal anesthesia Total IV Anesthesia: No
[2018-09-03] MEDS ORDERED: MIDAZOLAM 2 MG/2 ML VIAL IVP ONE (10:07)
[2018-09-03] MEDS ORDERED: MIDAZOLAM 2 MG/2 ML VIAL ONE (10:12)
--- NOTE | 2018-09-03 12:08 | POSTOPPROG ---
Post Op Note Date of Operation: 09/03/18 Surgeon: Juliocesar Rodriguez Mail Handlers Supervisor: Amada Roach Anesthesia: GET(General Endotracheal) Pre-op Diagnosis: endometriosis Post-op Diagnosis: Same Procedure: Robotic excision of extensive endo, bilat ureterolysis, appy Inf/Abcess present in the surg proc area at time of surgery?: No EBL: Minimal Complications: None
[2018-09-03] MEDS ORDERED: HYDROCODONE/APAP 5/325 TAB PO PRN (12:09)
[2018-09-03] MEDS ORDERED: OXYCODONE/APAP 5/325 TAB PO PRN (12:09)
[2018-09-03] MEDS ORDERED: ONDANSETRON DISINTEGRATING 4 MG TAB PO PRN (12:10)
[2018-09-03] MEDS ORDERED: oxyCODONE IR 5 MG TAB PO PRN (12:15)
[2018-09-03] MEDS ORDERED: fentaNYL 100 MCG/2 ML INJ IVP PRN (12:15)
[2018-09-03] MEDS ORDERED: NALOXONE HCL 0.4 MG/ML INJ IVP PRN (12:15)
[2018-09-03] MEDS ORDERED: MEPERIDINE 25 MG/0.5 ML AMP IVP PRN (12:15)
[2018-09-03] MEDS ORDERED: LR 500 ML IV PRN (12:15)
[2018-09-03] MEDS ORDERED: HYDROmorphONE/DILAUDID 1 MG/ML INJ ONE (12:23)
[2018-09-03] MEDS ORDERED: DIAZEPAM 5 MG/ML 1 ML SYR ONE (12:23)
[2018-09-03] MEDS: HYDROmorphONE/DILAUDID 1 MG/ML INJ IVP PRN ×4 (12:25→16:24)
[2018-09-03] MEDS ORDERED: PROMETHAZINE HCL 25 MG/ML INJ ONE (12:26)
--- NOTE | 2018-09-03 12:27 | POSTANESTH ---
Post Anesthetic Evaluation Cardiovascular Status: Normal, Stable Respiratory Status: Normal, Stable Level of Consciousness/Mental Status: Can Participate in Eval, Mildly Sleepy, Arousable Pain Control: Adequate, Prn Tx Ordered Nausea/Vomiting Control: Adequate, Prn Tx Ordered Complications Possibly Related to Anesthesia: None Noted (treating pain and nausea. mild petechia noticed around eyes and upper cheeks. kayla informed)
[2018-09-03] MEDS: PROMETHAZINE HCL 25 MG/ML INJ IVP PRN ×2 (12:31→13:20)
[2018-09-03] MEDS: DIAZEPAM 5 MG/ML 1 ML SYR IVP PRN ×2 (12:40→13:25)
--- NOTE | 2018-09-03 13:20 | GOP ---
[f rep st] OPERATIVE REPORT DATE OF OPERATION: 09/03/2018 SURGEON: Juliocesar Rodriguez MD HEAVY EQUIPMENT RENTAL MANAGER: Amada Roach CFA. ANESTHESIA: General. PREOPERATIVE DIAGNOSIS: 1. Endometriosis. 2. Dysmenorrhea. 3. Midcycle pain. 4. Dyschezia. POSTOPERATIVE DIAGNOSIS: 1. Endometriosis. 2. Dysmenorrhea. 3. Midcycle pain. 4. Dyschezia. 5. Uterine fibroids. PROCEDURE PERFORMED: 1. Robotic excision of endometriosis in anterior and posterior cul-de-sac, bilateral ovarian fossa. 2. Laparoscopic myomectomy. 3. Excision of sigmoid lesions. 4. Excision of rectal nodule. 5. Bilateral ureterolysis. 6. Bilateral ovariopexy. 7. Appendectomy by Dr. Zamora. FINDINGS: SPECIMENS: 1. Pelvic peritoneum with endometriosis. 2. Sigmoid lesions. 3. Rectal lesion. 1. Uterine fibroids. 4. ESTIMATED BLOOD LOSS: Scant. DESCRIPTION OF PROCEDURE: The patient was taken to the operating room where she was identified. Gen eral anesthesia was administered and found to be adequate. She was placed in the lithotomy position and prepared and draped in normal sterile fashion. A Fisher catheter was placed in her bladder. A Hu lka tenaculum was placed in the uterus for manipulation. A bimanual exam had been performed noting a nodular area in the posterior cul-de-sac between the uterosacral ligaments with minimal uterine mobi lity. An 8 mm infraumbilical incision was made with a scalpel. The Veress needle with CO2 gas flowing was advanced into the peritoneal cavity. The abdomen was then insufflated with carbon dioxide gas. The 8 mm trocar followed by the laparoscope were then inserted. The upper abdomen was unremarkable. The re was no endometriosis on either diaphragm, liver, stomach, gallbladder, or upper abdominal bowel. Two lateral ports were placed on the right, 1 on the left under direct visualization. The patient wa s then placed in Trendelenburg position and the da Winifred robot docked on the left side. The instrume nts were brought into the abdominal cavity under direct visualization. The patient had endometriosis on the serosal surface of the uterus with several lesions on each ovary. There was a larger, approx imately 2.5 cm, mostly subserous fibroid on the left posterior uterus. The left ovary had what appea red to be a hemorrhagic cyst, as well as adhesions to the fibroid and the pelvic sidewall overlying t he left ureter. Both fallopian tubes were unremarkable. She had a larger nodular area on the rectum adhering it to the cervix at the level of the uterosacral ligaments. There was endometriosis on bot h pelvic sidewalls, as well as the posterior cul-de-sac and the uterine cervix. There were several w gabe-type endometriotic lesions on the appendix. The appendix was dissected free. Dr. Colleen Zamora of General Surgery came in to perform the laparosco pic appendectomy. The lesions in the anterior cul-de-sac were treated, as well as the serosal surfac e of the uterus. A bilateral ureterolysis was required given the endometriosis overlying both ureter s, as well as left ovary being adherent on the ureter. The peritoneum of the pelvic brims were incis ed. The ureters were gently dissected free and lateralized off the overlying peritoneum and endometr iosis from the pelvic brim all the way down to the uterine arteries. Once this was accomplished, the entire pelvic sidewall peritoneum bilaterally was completely excised. The left ovary was freed also from the fibroid. A hemorrhagic cyst was opened. This did not appear to be an endometrioma. There was no thickened cyst wall present. A bilateral ovariopexy was performed by attaching each ovary to the ipsilateral round ligaments near the internal inguinal ring with 3-0 Vicryl Rapide suture. The lesions on the sigmoid were excised. The rectal lesion was off the posterior aspect of the cervix. An EEA Sizer was placed in the rectum. The rectal lesion was then completely excised. Bot h the rectal lesion and sigmoid lesions extended into the muscularis. The thickened fibrotic area wh ich was adherent to the cervix and the upper vagina was excised. This required entry into the vagina . All specimens were then removed through the vagina. The posterior cul-de-sac peritoneum was then completely excised. The left posterior fibroid, as well as 2 smaller anterior fibroids were then exc ised and also removed through the vagina. The pelvis was then copiously irrigated with sterile salin e and hemostasis was present. The vaginal opening was closed with a running 2-0 Vicryl suture. The robot was then undocked. The fascia was closed with 0 Vicryl, skin with 4-0 Monocryl and Steri-Strip s. Anesthesia was reversed. The patient was taken to the PACU awake, in stable condition. COMPLICATIONS: None. DISPOSITION: Patient stable to PACU. /[id number]/MODL
[2018-09-03] MEDS ORDERED: SUGAMMADEX SODIUM 200 MG/2 ML VIAL IVP ONE (14:08)
[2018-09-03] MEDS ORDERED: KETOROLAC 30 MG/1 ML SDV ONE (14:09)
[2018-09-03] MEDS: ONDANSETRON 4 MG/2 ML VIAL IVP PRN ×2 (14:48→18:16)
[2018-09-03] MEDS: SIMETHICONE 80 MG TAB CHEW PO SCH ×2 (15:56→23:55)
[2018-09-03] MEDS: GABAPENTIN 300 MG CAP PO SCH ×2 (15:57→23:53)
[2018-09-03] MEDS: KETOROLAC 30 MG/1 ML SDV IVP SCH ×2 (16:23→19:44)
[2018-09-03] MEDS: CYCLOBENZAPRINE 10 MG TAB PO PRN ×2 (18:16→18:33)
[2018-09-03] MEDS: DOCUSATE SODIUM 100 MG CAP PO SCH (21:03)
[2018-09-04] MEDS: CYCLOBENZAPRINE 10 MG TAB PO PRN ×4 (02:35→23:28)
[2018-09-04] MEDS: KETOROLAC 30 MG/1 ML SDV IVP SCH ×4 (02:36→10:06)
[2018-09-04 06:42] LABS: PLATELET COUNT 194 10^3/uL (150-400)
[2018-09-04] MEDS: SIMETHICONE 80 MG TAB CHEW PO SCH ×5 (09:07→20:52)
[2018-09-04] MEDS: GABAPENTIN 300 MG CAP PO SCH ×3 (09:28→20:51)
[2018-09-04] MEDS: DOCUSATE SODIUM 100 MG CAP PO SCH ×2 (09:29→20:50)
--- NOTE | 2018-09-04 09:46 | SOAPPROG ---
SOAP Progress Note Assessment/Plan: Assessment: Doing well overall. Tolerating anemia Plan: 09/04/18 09:44 Rpt H/H at noon. Possible discharge today if stable Surgery explained Subjective: Pain better controlled today No lightheadedness with walking. Objective: Vital Signs Temp Pulse Resp BP Pulse Ox 36.7 C 74 16 88/52 L 96 09/04/18 06:37 09/04/18 06:37 09/04/18 06:37 09/04/18 06:37 09/04/18 06:37 Laboratory Results 09/04/18 03:05 09/03/18 09/04/18 09/05/18 05:59 05:59 05:59 Intake Total 2375 Output Total 1770 300 Balance 605 -300 - Pending Discharge Pending Discharge Within 24 Hours: Yes Pending Discharge Date: 09/05/18 Pending Discharge Time: 11:00 Physical Exam - Physical Exam General Appearance: WD/WN, alert, no apparent distress Respiratory: lungs clear Cardiac/Chest: regular rate, rhythm Abdomen: normal bowel sounds, soft Skin: normal color, warm/dry (Inc C,D,I) ICD10 Worksheet Patient Problems: Problems Problem Status Onset Abdominal pain Acute
[2018-09-04] MEDS: ACETAMINOPHEN 325 MG TAB PO PRN ×3 (10:01→20:19)
[2018-09-04] MEDS: HYDROmorphONE/DILAUDID 1 MG/ML INJ IVP PRN ×2 (10:58→18:02)
[2018-09-05] MEDS: ACETAMINOPHEN 325 MG TAB PO PRN (05:42)
[2018-09-05] MEDS: LR 1,000 ML IV SCH ×2 (07:30→07:50)
[2018-09-05] MEDS: CYCLOBENZAPRINE 10 MG TAB PO PRN ×2 (07:40→18:02)
[2018-09-05] MEDS ORDERED: TDAP ADULT 0.5 ML INJ (BOOSTRIX) IM ONE ×2 (09:08→21:30)
[2018-09-05] MEDS ORDERED: ACETAMINOPHEN 325 MG TAB PO ONE ×2 (14:35→15:15)
[2018-09-05] MEDS ORDERED: diphenhydrAMINE 25 MG CAP PO ONE ×2 (14:35→15:15)
[2018-09-05] MEDS: GABAPENTIN 300 MG CAP PO SCH ×2 (16:11→17:21)
[2018-09-05] MEDS: SIMETHICONE 80 MG TAB CHEW PO SCH (16:11)
[2018-09-05] MEDS: DOCUSATE SODIUM 100 MG CAP PO SCH (16:11)
[2018-09-05 22:17] VITALS: BP 105/74
== END 2018-09-05 22:45 | disposition home or self-care (01) ==
LOC: FSGY 07:34 → F3E 12:10 → FOB 14:00
PROVIDERS: ADMIT Obstetrics & Gynecology; ATTEND Obstetrics & Gynecology
PROC: 0DBP4ZX Excision of Rectum, Percutaneous Endoscopic Approach, Diagnostic (ICD-10-PCS; principal; 2018-09-03 09:00)
PROC: 0UB24ZX Excision of Bilateral Ovaries, Percutaneous Endoscopic Approach, Diagnostic (ICD-10-PCS; principal; 2018-09-03 09:00)
PROC: 0UB94ZX Excision of Uterus, Percutaneous Endoscopic Approach, Diagnostic (ICD-10-PCS; principal; 2018-09-03 09:00)
PROC: 0UBF4ZX Excision of Cul-de-sac, Percutaneous Endoscopic Approach, Diagnostic (ICD-10-PCS; principal; 2018-09-03 09:00)
PROC: 8E0W4CZ Robotic Assisted Procedure of Trunk Region, Percutaneous Endoscopic Approach (ICD-10-PCS; 2018-09-03 09:00)
PROC: 0DTJ4ZZ Resection of Appendix, Percutaneous Endoscopic Approach (ICD-10-PCS; 2018-09-03 09:00)
DX: N80.1 Endometriosis of ovary (principal); N80.3 Endometriosis of pelvic peritoneum; N80.5 Endometriosis of intestine; D25.2 Subserosal leiomyoma of uterus; N94.6 Dysmenorrhea, unspecified; Z23 Encounter for immunization
CPT/HCPCS: 58662; 90471; C1765; G0378; P9016; J0690; J1100; J1170; J1885; J2001; J2250; J2405; J2550; J2704; J3010; J3360

== ENCOUNTER 2018-09-09 21:05 | Observation (INO) | payer MEDICAID ==
--- NOTE | 2018-09-09 21:06 | EDPHY ---
H & P Time Seen by Provider: 09/09/18 21:05 HPI/ROS: CHIEF COMPLAINT: Abdominal pain HISTORY OF PRESENT ILLNESS: Patient had appendectomy and endometriosis surgery last week by Dr. Juliocesar Rodriguez. She told me she got transfusion of 2 units of blood before discharge. She arrives today by EMS with complaints of worsening right lower quadrant pain and multiple episodes of nausea and vomiting. She received Phenergan Zofran and morphine in route by EMS. Patient felt like she was recovering okay from surgery until 3 days ago when she started developing sharp right-sided lower abdominal pain. Worse with movement, associated with vomiting and nausea today. No urinary symptoms. No fevers or chills. REVIEW OF SYSTEMS: Eye: no change in vision ENT: no sore throat Cardiac: no chest pain or syncope Pulmonary: no cough or SOB Abdomen: HPI Musculoskeletal: no back pain Skin: no rash Neuro: no headache Constitutional: no fever : no urinary symptoms A comprehensive 10 point review of systems is otherwise negative aside from elements mentioned in the history of present illness. PAST MEDICAL HISTORY: Surgery last week as in HPI, migraines Social history: Here with a friend General Appearance: Alert and conversant, cooperative. Eyes: No scleral icterus. ENT, Mouth: Slightly dry mucous membranes. Respiratory: Normal respiratory effort, breath sounds equal, lungs are clear to auscultation. Cardiovascular: Regular rate and rhythm. Gastrointestinal: Diffuse abdominal tenderness. Ecchymosis on the lower abdomen over the pubis on the right side to the flank. Neurological: Alert, face symmetric, normal motor and sensory in extremities. Skin: Warm and dry, no rashes. Musculoskeletal: No peripheral edema. Psychiatric: Moderately anxious. Emergency Department course/MDM: Morphine 6 IV, CT abdomen pelvis discussed and consented. 2209: CT per Dr. Lucina Horta shows a 12 x 9 cm soft tissue mass could be endometriosis or blood, also a cystic right lower quadrant mass possible abscess. Call is placed to her traveling representative Dr. Juliocesar Rodriguez, discussed at 2020. He will admit her for further evaluation. Constitutional: Initial Vital Signs Temperature (C) 37.1 C 09/09/18 21:18 Heart Rate 115 H 09/09/18 21:18 Respiratory Rate 20 09/09/18 21:18 Blood Pressure 112/67 09/09/18 21:18 O2 Sat (%) 94 09/09/18 21:18 O2 Delivery Mode Room Air Allergies/Adverse Reactions: nickel Allergy (Verified 09/09/18 21:18) Rash- very quickly upon contact Penicillins Allergy (Verified 09/09/18 21:18) Hives Sulfa (Sulfonamide Antibiotics) Allergy (Verified 09/09/18 21:18) Hives Home Medications: Medication Instructions Recorded Brayan 08/13/18 Herbals/Supplements -Info Only 08/13/18 Hydroxyzine HCl PRN 08/13/18 Zipsor PRN 08/13/18 Cyclobenzaprine 09/03/18 Medical Decision Making - Diagnostics Imaging: Discussed imaging studies w/ director call Radiologist - Data Points Laboratory Results: Laboratory Results 09/09/18 21:15 09/09/18 21:15 09/09/18 09/09/18 09/09/18 21:20 21:15 21:15 WBC RBC Hgb POC Hgb 12.9 gm/dL gm/dL (12.6-16.3) Hct POC Hct 38 % % (38-47) MCV MCH MCHC RDW Plt Count MPV Neut % (Auto) Lymph % (Auto) [place] % (Auto) Eos % (Auto) Baso % (Auto) Nucleat RBC Rel Count Absolute Neuts (auto) Absolute Lymphs (auto) Absolute Monos (auto) Absolute Eos (auto) Absolute Basos (auto) Absolute Nucleated RBC Immature Gran % Immature Gran # POC Sodium 136 mEq/L mEq/L (135-145) Sodium 132 mEq/L L mEq/L (135-145) POC Potassium 3.5 mEq/L mEq/L (3.3-5.0) Potassium 4.0 mEq/L mEq/L (3.5-5.2) POC Chloride 98 mEq/L mEq/L (97-110) Chloride 95 mEq/L L mEq/L (97-110) Carbon Dioxide 25 mEq/l mEq/l (22-31) POC Total CO2 23 mEq/L mEq/L (22-31) Anion Gap 12 mEq/L mEq/L (6-14) POC BUN 11 mg/dL mg/dL (7-23) BUN 13 mg/dL mg/dL (7-23) Creatinine 0.6 mg/dL mg/dL (0.6-1.0) POC Creatinine 0.5 mg/dL L mg/dL (0.6-1.0) Estimated GFR > 60 Glucose 98 mg/dL mg/dL (70-100) POC Glucose 103 mg/dL H mg/dL (70-100) Calcium 9.1 mg/dL mg/dL (8.5-10.4) Beta HCG, Qual NEGATIVE 09/09/18 21:15 WBC 8.18 10^3/uL 10^3/uL (3.80-9.50) RBC 3.93 10^6/uL L 10^6/uL (4.18-5.33) Hgb 12.6 g/dL g/dL (12.6-16.3) POC Hgb Hct 36.3 % L % (38.0-47.0) POC Hct MCV 92.4 fL fL (81.5-99.8) MCH 32.1 pg pg (27.9-34.1) MCHC 34.7 g/dL g/dL (32.4-36.7) RDW 13.1 % % (11.5-15.2) Plt Count 318 10^3/uL 10^3/uL (150-400) MPV 9.0 fL fL (8.7-11.7) Neut % (Auto) 81.6 % H % (39.3-74.2) Lymph % (Auto) 10.0 % L % (15.0-45.0) [place] % (Auto) 6.5 % % (4.5-13.0) Eos % (Auto) 0.9 % % (0.6-7.6) Baso % (Auto) 0.4 % % (0.3-1.7) Nucleat RBC Rel Count 0.0 % % (0.0-0.2) Absolute Neuts (auto) 6.68 10^3/uL H 10^3/uL (1.70-6.50) Absolute Lymphs (auto) 0.82 10^3/uL L 10^3/uL (1.00-3.00) Absolute Monos (auto) 0.53 10^3/uL 10^3/uL (0.30-0.80) Absolute Eos (auto) 0.07 10^3/uL 10^3/uL (0.03-0.40) Absolute Basos (auto) 0.03 10^3/uL 10^3/uL (0.02-0.10) Absolute Nucleated RBC 0.00 10^3/uL 10^3/uL (0-0.01) Immature Gran % 0.6 % % (0.0-1.1) Immature Gran # 0.05 10^3/uL 10^3/uL (0.00-0.10) POC Sodium Sodium POC Potassium Potassium POC Chloride Chloride Carbon Dioxide POC Total CO2 Anion Gap POC BUN BUN Creatinine POC Creatinine Estimated GFR Glucose POC Glucose Calcium Beta HCG, Qual Medications Given: Discontinued Medications Sodium Chloride (Ns) 1,000 mls @ 0 mls/hr IV EDNOW ONE; Wide Open PRN Reason: Protocol Stop: 09/09/18 21:17 Last Admin: 09/09/18 21:30 Dose: 1,000 mls Morphine Sulfate (Morphine) 6 mg IVP EDNOW ONE Stop: 09/09/18 21:17 Last Admin: 09/09/18 21:30 Dose: 4 mg Point of Care Test Results: Chemistry 09/09/18 21:20 POC Sodium 136 mEq/L mEq/L (135-145) POC Potassium 3.5 mEq/L mEq/L (3.3-5.0) POC Chloride 98 mEq/L mEq/L (97-110) POC Total CO2 23 mEq/L mEq/L (22-31) POC BUN 11 mg/dL mg/dL (7-23) POC Creatinine 0.5 mg/dL L mg/dL (0.6-1.0) POC Glucose 103 mg/dL H mg/dL (70-100) ISTAT H&H 09/09/18 21:20 POC Hgb 12.9 gm/dL gm/dL (12.6-16.3) POC Hct 38 % % (38-47) Departure - Departure Disposition: [facility] Inpatient Acute Clinical Impression: Abdominal pain Qualifiers: Abdominal location: right lower quadrant Qualified Code(s): R10.31 - Right lower quadrant pain Condition: Good
[2018-09-09] MEDS ORDERED: NS 1,000 ML IV ONE ×2 (21:16→22:58)
[2018-09-09 21:24] LABS: PLATELET COUNT 318 10^3/uL (150-400)
[2018-09-09] MEDS ORDERED: IOPAMIDOL (ISOVUE-300) 100 ML BTL ONE (21:26)
[2018-09-09] MEDS ORDERED: ONDANSETRON DISINTEGRATING 4 MG TAB PO PRN (22:38)
[2018-09-09] MEDS ORDERED: HYDROCODONE/APAP 5/325 TAB PO PRN (22:38)
[2018-09-09] MEDS ORDERED: ONDANSETRON 4 MG/2 ML VIAL IVP PRN (22:38)
[2018-09-09] MEDS ORDERED: OXYCODONE/APAP 5/325 TAB PO PRN (22:38)
[2018-09-09] MEDS ORDERED: HYDROmorphONE/DILAUDID 1 MG/ML INJ IVP PRN (22:40)
[2018-09-09] MEDS ORDERED: LR 1,000 ML IV SCH (23:00)
[2018-09-09] MEDS ORDERED: ERTAPENEM 1 GM in NS 100 ML IV ONE (23:05)
[2018-09-10] MEDS: METOCLOPRAMIDE 10 MG/2 ML VIAL IVP PRN ×2 (01:15→11:47)
[2018-09-10 07:21] LABS: PLATELET COUNT 225 10^3/uL (150-400)
[2018-09-10 08:53] VITALS: BP 93/57
[2018-09-10] MEDS ORDERED: DOCUSATE SODIUM 100 MG CAP PO SCH (09:00)
[2018-09-10] MEDS ORDERED: LOPERAMIDE HCL 2 MG CAP PO PRN (12:01)
[2018-09-10 13:03] LABS: PLATELET COUNT 248 10^3/uL (150-400)
[2018-09-10] MEDS: IBUPROFEN 600 MG TAB PO SCH (14:53)
--- NOTE | 2018-09-11 10:18 | GDS ---
[f rep st] DISCHARGE SUMMARY DISCHARGE DIAGNOSES: 1. Postoperative pain. 2. Nausea. HISTORY AND HOSPITAL COURSE: The patient is a 38-year-old female, who, 1 week before admission, unde rwent robotic excision of endometriosis. On the day of admission, she had contacted me with some inc reasing pain and intractable nausea. She went to the emergency department where she had a normal whi te count and hemoglobin. A CT scan showed intraperitoneal blood which was known from her postop cour se. Her pain and nausea were managed overnight. On postoperative day #2, she was discharged home in stable condition. She was discharged with Phenergan and Reglan for nausea and Dilaudid for pain. S he is to follow up in the office 1 week after discharge. She is to call me with any concerns or ques tions. /[id number]/MODL
--- NOTE | 2018-09-11 10:18 | GHP ---
[f rep st] HISTORY AND PHYSICAL DATE OF ADMISSION: 09/09/2018 CHIEF COMPLAINT: Abdominal pain and nausea. HISTORY: Noa is a 38-year-old female. One week prior to admission, she underwent a robotic e xcision of extensive endometriosis. Postoperatively, she had an intraperitoneal bleed with her hemog lobin dropping to approximately 6.7. She became symptomatic and received a 2 unit blood transfusion, despite her hemoglobin having stabilized. She felt much better after the transfusion, and was disch arged home on postoperative day #2. On 09/09/18, she called me complaining of some increasing abdomi nal pain and nausea causing her to be unable to eat and stay adequately hydrated. As a result, she w ent to the emergency department. In the emergency department, she had a normal white count and hemog lobin. A CAT scan showed intraperitoneal blood, consistent with her known prior postoperative bleed. She was given analgesia and antinausea medication. She was admitted overnight for observation. Jacob forrest did have 1 additional episode of nausea, which was then controlled. On hospital day #2, her hemogl obin had remained stable with a stable and normal white count. She was discharged home with Reglan a nd Phenergan for nausea, and Dilaudid for pain. She was to follow up in the office a week after disc harge. She had my personal cell phone number to contact me if she had any recurrence or worsening sy mptoms. PHYSICAL EXAM: The patient had 1 episode of an elevated temperature, but remained afebrile. LUNGS: Were clear. HEART: Was regular rate and rhythm. ABDOMEN: Was flat, soft, and minimally tender, c onsistent with surgery. EXTREMITIES: Were without cyanosis and edema. SKIN: Was warm and pink. /[id number]/MODL
== END 2018-09-10 15:50 | disposition home or self-care (01) ==
LOC: EDUNIT# → FOB 09-10 00:15
PROVIDERS: ADMIT Obstetrics & Gynecology; ATTEND Obstetrics & Gynecology
DX: G89.18 Other acute postprocedural pain (principal); R10.31 Right lower quadrant pain; R11.0 Nausea; E86.9 Volume depletion, unspecified
CPT/HCPCS: 74177; G0378; 82435-PO; 82565-PO; 82947-PO; 84132-PO; 84295-PO; 84520-PO; 85014-ER; 96365; J1170; J1335; J2270; J2405; J2765; Q9967

== ENCOUNTER 2018-09-17 02:16 | Emergency (ER) | payer MEDICAID ==
[2018-09-17 02:29] LABS: PLATELET COUNT 924 10^3/uL (150-400)
[2018-09-17] MEDS ORDERED: NS 1,000 ML IV ONE ×2 (03:13→03:14)
[2018-09-17] MEDS ORDERED: METOCLOPRAMIDE 10 MG/2 ML VIAL IVP ONE (03:14)
--- NOTE | 2018-09-17 03:48 | EDPHY ---
H & P Stated Complaint: N/V, vag bleeding, lightheaded Time Seen by Provider: 09/17/18 03:05 HPI/ROS: HPI The patient presents with nausea, vomiting, lightheadedness, vaginal bleeding for the last several days. The patient reports 1 week of heavy vaginal bleeding up to 1 pad per hour. For the last 1 week she has had very low energy , felt more tired than usual and has mostly been resting at home. She developed an episode of vomiting yesterday and another 1 today, she contacted her tool grinder operator external and was instructed to come to the emergency department. She was started on an OCP today which has improved her vaginal bleeding already. She has a history of endometriosis requiring robotic excision of extensive endometriosis complicated with postoperative anemia requiring 2 units packed red blood cell transfusion. REVIEW OF SYSTEMS 10 systems were reviewed and negative with the exception of the elements mentioned in the history of present illness. PMHx: Endometriosis, status post robotic excision also with appendectomy, followed by Dr. Rodriguez Soc Hx: Housed PHYSICAL General Appearance: Alert, no distress Eyes: Pupils equal and round no pallor or injection ENT, Mouth: Mucous membranes dry Respiratory: There are no retractions, lungs are clear to auscultation Cardiovascular: Regular rate and rhythm Gastrointestinal: Abdomen is soft and non-tender, no masses, bowel sounds normal Neurological: A&O, moves all extremities Skin: Warm and dry, no rashes Musculoskeletal: Neck is supple non tender Extremities: symmetrical, full range of motion Psychiatric: Patient is oriented X 3, there is no agitation Source: Patient Exam Limitations: No limitations - Personal History LMP (Females 10-55): Now Current Tetanus/Diphtheria Vaccine: Yes Tetanus Vaccine Date: 2018 - Medical/Surgical History Hx Asthma: No Hx Chronic Respiratory Disease: No Hx Diabetes: No Hx Cardiac Disease: No Hx Renal Disease: No Hx Cirrhosis: No Hx Alcoholism: No Hx HIV/AIDS: No Hx Splenectomy or Spleen Trauma: No Other PMH: migranes, ? endometriosis, fibroids and ovarian cysts, appy, - Social History Smoking Status: Former smoker Constitutional: Initial Vital Signs Temperature (C) 36.8 C 09/17/18 02:19 Heart Rate 98 09/17/18 02:19 Respiratory Rate 16 09/17/18 02:19 Blood Pressure 100/72 09/17/18 02:19 O2 Sat (%) 98 09/17/18 02:19 O2 Delivery Mode Room Air Allergies/Adverse Reactions: amoxicillin Allergy (Verified 09/17/18 02:21) nickel Allergy (Verified 09/09/18 21:18) Rash- very quickly upon contact Penicillins Allergy (Verified 09/09/18 21:18) Hives Sulfa (Sulfonamide Antibiotics) Allergy (Verified 09/09/18 21:18) Hives Home Medications: Medication Instructions Recorded Brayan 08/13/18 Herbals/Supplements -Info Only 08/13/18 Hydroxyzine HCl PRN 08/13/18 Zipsor PRN 08/13/18 Cyclobenzaprine 09/03/18 HYDROmorphone HCL [Dilaudid 2 mg 2 mg PO Q4 #20 tab 09/10/18 (*)] Metoclopramide [Reglan 10 mg tab 10 mg PO Q6 PRN #20 tab 09/10/18 (*)] Promethazine HCl [Phenergan 25mg 25 mg PO Q6 #20 tab 09/10/18 (*)] Bcp 09/17/18 Medical Decision Making Differential Diagnosis: 38-year-old female with history of extensive endometriosis status post robotic excision as well as appendectomy complicated by anemia presents from home with heavy vaginal bleeding, lightheadedness, vomiting. Here, she appears dehydrated , vital signs are normal. Patient is started on IV fluids and Reglan for nausea. Labs are checked, she does not appear to be anemic though does show some signs of dehydration. She also has a leukocytosis which could be related to vomiting. Patient was given 2 L of IV fluid and Reglan for nausea and vomiting with improvement in her symptoms. She had no active vomiting here. Her vital signs were normal. She was able to walk to the bathroom without difficulty. Differential diagnosis includes dehydration, gastroenteritis, anemia. Upon discharge, the patient was concern to go home because of the way that she was feeling. I told her I did not see a reason to admit her to the hospital if she is able to eat and drink without difficulty, can ambulate unassisted and has no lab abnormalities requiring acute treatment. She was still concerned, thus I consulted Dr. Rodriguez the patient's OBGYN. He evaluated her in the emergency department and agrees that the patient is safe for discharge and he can follow up with her tomorrow. - Data Points Laboratory Results: Laboratory Results 09/17/18 02:15 09/17/18 02:15 Medications Given: Discontinued Medications Sodium Chloride (Ns) 1,000 mls @ 0 mls/hr IV EDNOW ONE; Wide Open PRN Reason: Protocol Stop: 09/17/18 03:14 Last Admin: 09/17/18 03:23 Dose: 1,000 mls Sodium Chloride (Ns) 1,000 mls @ 0 mls/hr IV EDNOW ONE; Wide Open PRN Reason: Protocol Stop: 09/17/18 03:15 Last Admin: 09/17/18 03:22 Dose: 1,000 mls Metoclopramide HCl (Reglan Injection) 10 mg IVP EDNOW ONE Stop: 09/17/18 03:15 Last Admin: 09/17/18 03:22 Dose: 10 mg Departure - Departure Disposition: Home, Routine, Self-Care Clinical Impression: Nausea & vomiting, Dehydration, Vaginal bleeding Condition: Good Instructions: Dehydration (ED) Additional Instructions: Please follow-up with your OBGYN in the next 1-2 days. Return to the emergency department if worse in any way. Referrals: ROCIO BHAT [Primary Care Provider] - As per Instructions Juliocesar Rodriguez MD [Medical Doctor] - As per Instructions
[2018-09-17 07:53] VITALS: BP 100/58
== END 2018-09-17 07:52 | disposition home or self-care (01) ==
LOC: EDUNIT#
DX: R11.2 Nausea with vomiting, unspecified (principal); E86.9 Volume depletion, unspecified; N93.9 Abnormal uterine and vaginal bleeding, unspecified; Z98.890 Other specified postprocedural states
CPT/HCPCS: 96374; J2765